=== PATIENT | male | born 1950 | race Caucasian/White ===

== ENCOUNTER 2019-04-15 11:05 | Outpatient (REF) | payer MEDICARE, SELFPAY ==
[2019-04-15 22:23] LABS: Abs Immature Grans 0.02 k/cumm (0.0-0.09); Absolute Basophil Count 0.03 k/cumm (0.0-0.2); Absolute Eosinophil Count 0.18 k/cumm (0.0-0.7); Absolute Lymphocyte Count 1.14 k/cumm (1.2-3.4); Absolute Monocyte Count 0.67 k/cumm (0.11-0.7); Absolute Neutrophil Count 5.91 k/cumm (1.2-6.7); Basophils % 0.4; Eosinophils % 2.3; HGB 15.3 g/dL (13.5-17.5); Immature Grans % 0.3; Lymphocytes % 14.3; Mean Corp. HGB Concentration 32.6 g/dL (32.0-36.0); Mean Corpuscular Hemoglobin 29.2 pg (27.0-33.0); Mean Corpuscular Volume 89.7 fL (80-95); Mean Platelet Volume 10.5 fL (8.0-11.0); Monocytes % 8.4; Neutrophils % 74.3; Platelet Count 217 x1000/uL (130-400); RBC 5.24 m/cumm (4.50-6.00); RBC Distribution Width 14.9 % (11.8-14.1); White Blood Cell Count 7.95 k/cumm (4.4-10.8)
[2019-04-15 22:55] LABS: ALT 21 U/L (16-63); AST 14 U/L (15-37); Albumin 3.8 g/dL (3.4-5.0); Alkaline Phosphatase 108 U/L (46-116); BUN 15 mg/dL (7-18); Bilirubin, Total 0.6 mg/dL (0.2-1.0); CREATININE 1.02 mg/dL (0.70-1.30); Calcium 9.5 mg/dL (8.5-10.1); Chloride 105 mmol/L (98-107); Glucose 97 mg/dL (70-100); Potassium 4.3 mmol/L (3.5-5.1); Sodium 144 mmol/L (136-145)
[2019-04-17 09:39] LABS: PSA, Diagnostic 2.1 ng/ml (0-4.5)
== END 2019-04-15 11:25 ==
LOC: NCHCN 11:05
PROVIDERS: PCP Family Medicine; Visit Provider Family Medicine
DX: J44.1 Chronic obstructive pulmonary disease with (acute) exacerbation (principal); R73.03 Prediabetes; Z12.5 Encounter for screening for malignant neoplasm of prostate
CPT/HCPCS: 80053; 84153; 85025

== ENCOUNTER 2019-12-09 10:57 | Outpatient (REF) | payer MEDICARE, BC, SELFPAY ==
[2019-12-09 22:37] LABS: ALT 24 U/L (16-63); AST 14 U/L (15-37); Albumin 3.9 g/dL (3.4-5.0); Alkaline Phosphatase 101 U/L (46-116); Anion Gap 5.5 mmol/L (3-11); BUN 19 mg/dL (7-18); Bilirubin, Total 0.6 mg/dL (0.2-1.0); CO2 32.5 mmol/L (21.0-32.0); CREATININE 1.15 mg/dL (0.70-1.30); Calcium 9.1 mg/dL (8.5-10.1); Chloride 105 mmol/L (98-107); Glucose 86 mg/dL (74-106); Potassium 4.5 mmol/L (3.5-5.1); Sodium 143 mmol/L (136-145); TSH (W/Ref FT4) 0.83 uIU/mL (0.36-3.74); Total Protein 7.1 g/dL (6.4-8.2)
== END 2019-12-09 11:17 ==
LOC: NCHCN 10:57
PROVIDERS: PCP Family Medicine; Visit Provider Nurse Practitioner Family
DX: R73.03 Prediabetes (principal); I10 Essential (primary) hypertension; E04.1 Nontoxic single thyroid nodule
CPT/HCPCS: 80053; 83036; 84443

== ENCOUNTER 2020-11-14 09:16 | Outpatient (REF) | payer MEDICARE, BC, SELFPAY ==
[2020-11-14 13:57] LABS: ALT 23 U/L (16-63); AST 12 U/L (15-37); Albumin 3.5 g/dL (3.4-5.0); Anion Gap 3.7 mmol/L (3-11); BUN 21 mg/dL (7-18); Bilirubin, Total 0.7 mg/dL (0.2-1.0); CO2 34.3 mmol/L (21.0-32.0); Calcium 9.3 mg/dL (8.5-10.1); Calculated LDL 82 mg/dL (<100); Chloride 106 mmol/L (98-107); Cholesterol 134 mg/dL (<200); Glucose 119 mg/dL (74-106); HDL Cholesterol 37 mg/dL (40-60); Potassium 4.1 mmol/L (3.5-5.1); Sodium 144 mmol/L (136-145); Total Protein 6.5 g/dL (6.4-8.2); Triglyceride 76 mg/dL (<150)
[2020-11-14 14:02] LABS: Hemoglobin A1C 5.9 % (<5.7)
[2020-11-14 14:19] LABS: Alkaline Phosphatase 105 U/L (46-116)
[2020-11-14 21:50] LABS: PSA, Screening 2.3 ng/mL (0.0-4.5)
== END 2020-11-14 09:17 | disposition home or self-care (01) ==
LOC: NCHCN 09:16
PROVIDERS: PCP Family Medicine; Visit Provider Nurse Practitioner Family
DX: I10 Essential (primary) hypertension (principal); R73.03 Prediabetes; Z12.5 Encounter for screening for malignant neoplasm of prostate
CPT/HCPCS: 80053; 80061; 84153; 83036

== ENCOUNTER 2021-01-16 18:12 | Outpatient (REF) | payer MEDICARE, BC, SELFPAY ==
[2021-01-16 15:50] LABS: Anion Gap 4.5 mmol/L (3-11); BUN 11 mg/dL (7-18); CO2 32.5 mmol/L (21.0-32.0); Calcium 9.4 mg/dL (8.5-10.1); Chloride 106 mmol/L (98-107); Glucose 133 mg/dL (74-106); Sodium 143 mmol/L (136-145)
== END 2021-01-16 18:13 | disposition home or self-care (01) ==
LOC: NCHCN 18:12
PROVIDERS: PCP Family Medicine; Visit Provider Nurse Practitioner Family
DX: I10 Essential (primary) hypertension (principal)
CPT/HCPCS: 80048

== ENCOUNTER 2021-12-12 09:39 | Outpatient (REF) | payer MEDICARE, BC, SELFPAY ==
[2021-12-12 15:22] LABS: HCT 37.2 % (40.0-50.0); HGB 12.8 g/dL (13.5-17.5); MCH 32.4 pg (27.0-33.0); MCHC 34.4 % (32.0-36.0); MCV 94 fL (80-95); MPV 9.2 fL (8.0-11.0); Platelet Count 180 10^3/uL (130-400); RBC 3.95 10^6/uL (4.36-5.78); RDW 14.4 % (11.8-14.1); RDW-SD 50.1 fL; WBC 11.36 10^3/uL (4.4-10.8)
[2021-12-12 16:06] LABS: Hemoglobin A1C 8.3 % (<5.7)
[2021-12-12 17:49] LABS: Albumin 3.3 g/dL (3.4-5.0); BUN 19 mg/dL (7-18); Glucose 116 mg/dL (74-106)
[2021-12-12 17:50] LABS: Alkaline Phosphatase 76 U/L (46-116); Bilirubin, Total 0.6 mg/dL (0.2-1.0); Chloride 101 mmol/L (98-107); Potassium 4.6 mmol/L (3.5-5.1); Sodium 140 mmol/L (136-145)
[2021-12-12 17:51] LABS: ALT 30 U/L (16-63); AST 12 U/L (15-37); Anion Gap 5.5 mmol/L (3-11); CO2 33.5 mmol/L (21.0-32.0)
[2021-12-12 18:05] LABS: Calcium 9.7 mg/dL (8.5-10.1)
[2021-12-12 23:17] LABS: PSA, Screening 3.5 ng/mL (<=6.5)
== END 2021-12-12 09:40 | disposition home or self-care (01) ==
LOC: NCHCN 09:39
PROVIDERS: PCP Family Medicine; Visit Provider Nurse Practitioner Family
DX: R73.03 Prediabetes (principal); E04.1 Nontoxic single thyroid nodule; J44.9 Chronic obstructive pulmonary disease, unspecified; R91.1 Solitary pulmonary nodule; F17.200 Nicotine dependence, unspecified, uncomplicated; Z12.5 Encounter for screening for malignant neoplasm of prostate; Z80.42 Family history of malignant neoplasm of prostate
CPT/HCPCS: 80053; 84153; 85027; 83036

== ENCOUNTER 2021-12-26 16:04 | Outpatient (REF) | payer MEDICARE, BC, SELFPAY ==
[2021-12-26 16:23] LABS: COMMENT (LAB VIEW ONLY) 121.22 mg/dL; Microalb ug/mg Crea 3.5 ug/mg Cr
== END 2021-12-26 16:05 | disposition home or self-care (01) ==
LOC: NCHCN 16:04
PROVIDERS: PCP Family Medicine; Visit Provider Nurse Practitioner Family
DX: E11.9 Type 2 diabetes mellitus without complications (principal)
CPT/HCPCS: 82043; 82570

== ENCOUNTER 2022-01-25 16:27 | Outpatient (REF) | payer MEDICARE, BC, SELFPAY ==
[2022-01-25 20:26] LABS: HCT 38.1 % (40.0-50.0); HGB 13.1 g/dL (13.5-17.5); MCH 33.2 pg (27.0-33.0); MCHC 34.4 % (32.0-36.0); MCV 97 fL (80-95); MPV 9.9 fL (8.0-11.0); Platelet Count 221 10^3/uL (130-400); RBC 3.95 10^6/uL (4.36-5.78); RDW 15.3 % (11.8-14.1); RDW-SD 53.9 fL
[2022-01-25 20:44] LABS: Anion Gap 5.7 mmol/L (3-11); BUN 28 mg/dL (7-18); CO2 31.3 mmol/L (21.0-32.0); CREATININE 1.4 mg/dL (0.70-1.30); Calcium 9.5 mg/dL (8.5-10.1); Chloride 100 mmol/L (98-107); Glucose 255 mg/dL (74-106); NT-proBNP 54 pg/mL (<300); Potassium 4.4 mmol/L (3.5-5.1); Sodium 137 mmol/L (136-145)
== END 2022-01-25 16:28 | disposition home or self-care (01) ==
LOC: NCHCN 16:27
PROVIDERS: PCP Family Medicine; Visit Provider Nurse Practitioner Family
DX: R06.02 Shortness of breath (principal)
CPT/HCPCS: 80048; 80053; 85027; 83880

== ENCOUNTER 2022-02-15 12:54 | Outpatient (REF) | payer MEDICARE, BC, SELFPAY ==
[2022-02-15 20:51] LABS: Anion Gap 7.4 mmol/L (3-11); BUN 19 mg/dL (7-18); CO2 33.6 mmol/L (21.0-32.0); CREATININE 1.1 mg/dL (0.70-1.30); Calcium 9.3 mg/dL (8.5-10.1); Chloride 99 mmol/L (98-107); Glucose 223 mg/dL (74-106); Potassium 3.9 mmol/L (3.5-5.1); Sodium 140 mmol/L (136-145)
== END 2022-02-15 12:55 | disposition home or self-care (01) ==
LOC: NCHCN 12:54
PROVIDERS: PCP Family Medicine; Visit Provider Nurse Practitioner Family
DX: R94.4 Abnormal results of kidney function studies (principal)
CPT/HCPCS: 80048